=== PATIENT | male | born 1955 | race Caucasian/White ===

== ENCOUNTER 2021-11-20 20:21 | Emergency (ER) | payer MEDICARE, OTHER | END 2021-11-20 22:02 | disposition home or self-care (01) | LOC: CSHERS 20:21 | DX: T83.091A Other mechanical complication of indwelling urethral catheter, initial encounter (principal); I48.91 Unspecified atrial fibrillation; N18.6 End stage renal disease; Z99.2 Dependence on renal dialysis; Z86.718 Personal history of other venous thrombosis and embolism | CPT/HCPCS: 99283 ==

== ENCOUNTER 2021-12-11 08:47 | Outpatient (CLI) | payer MEDICARE | END 2021-12-11 08:48 | disposition home or self-care (01) | LOC: CSHLAB 08:47 | PROVIDERS: ATTEND Surgery | DX: Z01.818 Encounter for other preprocedural examination (principal); Z20.822 Contact with and (suspected) exposure to COVID-19; C65.1 Malignant neoplasm of right renal pelvis | CPT/HCPCS: 93005; 93010; U0003; U0005 ==

== ENCOUNTER 2021-12-14 05:44 | Day surgery (SDC) | payer MEDICARE ==
[2021-12-11 12:31] VITALS: BMI 23.0
[2021-12-14] MEDS ORDERED: EPINEPHrine 1 MG/ML AMP ONE (06:39)
[2021-12-14] MEDS ORDERED: Bupivacaine 0.25% HCL 30 ML VIAL ONE (06:39)
[2021-12-14] MEDS ORDERED: Sodium Chloride 0.9% 100 ML ONE (06:40)
[2021-12-14] MEDS ORDERED: Fentanyl 100 MCG/2 ML VIAL ONE (06:43)
[2021-12-14] MEDS ORDERED: PROPOFOL 20 ML ONE (06:43)
[2021-12-14] MEDS ORDERED: Lidocaine 1% PF 5 ML VIAL ONE (06:48)
[2021-12-14] MEDS ORDERED: Ondansetron PF 4 MG/2 ML Vial ONE (06:48)
[2021-12-14] MEDS ORDERED: ceFAZolin 2 GM/Dextrose 50 ML IVPB ONE (07:04)
[2021-12-14] MEDS ORDERED: Acetaminophen 325 MG TAB PO PRN (08:10)
[2021-12-14] MEDS ORDERED: HYDROcodone/Acetaminophen 5/325 mg Tablet PO PRN (08:10)
== END 2021-12-14 08:30 | disposition home or self-care (01) ==
LOC: CSHSDC 05:44
PROVIDERS: ATTEND Surgery
PROC: 0JH60WZ Insertion of Totally Implantable Vascular Access Device into Chest Subcutaneous Tissue and Fascia, Open Approach (ICD-10-PCS; principal; 2021-12-14)
PROC: 02HV33Z Insertion of Infusion Device into Superior Vena Cava, Percutaneous Approach (ICD-10-PCS; 2021-12-14)
DX: T86.19 Other complication of kidney transplant (principal); C80.2 Malignant neoplasm associated with transplanted organ; C64.1 Malignant neoplasm of right kidney, except renal pelvis; I12.0 Hypertensive chronic kidney disease with stage 5 chronic kidney disease or end stage renal disease; N18.6 End stage renal disease; I48.0 Paroxysmal atrial fibrillation; Z86.718 Personal history of other venous thrombosis and embolism; Z87.891 Personal history of nicotine dependence; Z79.01 Long term (current) use of anticoagulants; Z79.52 Long term (current) use of systemic steroids; Z79.82 Long term (current) use of aspirin; Z79.899 Other long term (current) drug therapy; Z99.2 Dependence on renal dialysis; Z86.73 Personal history of transient ischemic attack (TIA), and cerebral infarction without residual deficits
CPT/HCPCS: 36561; C1788; J0171; J0690; J1642; J2405; J2704; J3010; J3490; S0020

== ENCOUNTER 2021-12-30 11:18 | Emergency (ER) | payer MEDICARE ==
[2021-12-30] MEDS ORDERED: Fentanyl 100 MCG/2 ML VIAL ONE (13:14)
[2021-12-30 13:22] LABS: Hemoglobin 8.1 g/dL (13.5-17.5); Mean Corpuscular HGB CONC 33.6 g/dL (32.0-36.0); Mean Corpuscular Hemoglobin 31.5 pg (27.0-33.0); Mean Corpuscular Volume 93.8 fl (81.2-95.1); Mean Platelet Volume 11.1 fl (7.4-10.4); Platelet Count 18 10x3/uL (150-450); RBC Distribution Width 14.3 % (11.5-14.5); Red Blood Cell (RBC) Count 2.57 10x6/uL (4.32-5.72); White Blood Cell (WBC) Count 0.5 10x3/uL (3.5-10.5)
[2021-12-30 13:30] LABS: MDiff Complete? YES
[2021-12-30 13:38] LABS: ALT (SGPT) 18 U/L (8-55); AST (SGOT) 24 U/L (5-34); Albumin 3.5 g/dL (3.4-4.8); Alkaline Phosphatase 54 U/L (40-110); Anion Gap 18 mmol/L (10-20); BUN (Urea Nitrogen) 62 mg/dL (8.4-25.7); Bilirubin, Total 0.8 mg/dL (0.2-1.2); CRP (Inflammatory) 6.09 mg/dL (= or < 0.5); Calc. Creatinine Clearance 0 mL/min (70-130); Carbon Dioxide 29 mmol/L (23-31); Chloride 94 mmol/L (98-107); Globulin 2.6 g/dL (2.4-3.5); Glucose 95 mg/dL (80-115); Potassium 4.5 mmol/L (3.5-5.1); Protein, Total 6.1 g/dL (5.8-8.1); Sodium 136 mmol/L (136-145)
[2021-12-30 13:50] LABS: Band 2 % (5-11); Lymphocytes 30 % (21-51); Monocytes 12 % (0-10); Neutrophil 48 % (42-75); Reactive Lymphocytes 6 % (0-10)
[2021-12-30 13:53] LABS: Ovalocytes SLIGHT = 2-5 cells (100X) (0-1/hpf); Toxic Granulation SLIGHT
[2021-12-30 13:54] LABS: Platelet Morphology Comment Appears Decreased; Reflex for Review?? YES
== END 2021-12-30 16:53 | disposition home or self-care (01) ==
LOC: CSHERS 11:18
DX: M70.32 Other bursitis of elbow, left elbow (principal); D61.818 Other pancytopenia; N18.6 End stage renal disease
CPT/HCPCS: 80053; 85025; 85060; 85652; 86140; 99282; J3010

== ENCOUNTER 2022-04-01 13:33 | Outpatient (CLI) | payer MEDICARE | END 2022-04-01 13:34 | disposition home or self-care (01) | LOC: CSHCT 13:33 | PROVIDERS: ATTEND Internal Medicine Hematology & Oncology | DX: C65.1 Malignant neoplasm of right renal pelvis (principal); J90 Pleural effusion, not elsewhere classified; N26.1 Atrophy of kidney (terminal); I87.8 Other specified disorders of veins; I77.89 Other specified disorders of arteries and arterioles; M71.9 Bursopathy, unspecified; Z90.49 Acquired absence of other specified parts of digestive tract; R18.8 Other ascites | CPT/HCPCS: 71260; 74177; 82565 ==

== ENCOUNTER 2022-06-24 08:46 | Outpatient (CLI) | payer MEDICARE | END 2022-06-24 08:47 | disposition home or self-care (01) | LOC: CSHCT 08:46 | PROVIDERS: ATTEND Internal Medicine Hematology & Oncology | DX: C65.9 Malignant neoplasm of unspecified renal pelvis (principal); R93.5 Abnormal findings on diagnostic imaging of other abdominal regions, including retroperitoneum | CPT/HCPCS: 71260; 74177 ==

== ENCOUNTER 2023-06-17 07:47 | Outpatient (CLI) | payer MEDICARE ==
[2023-06-17] MEDS ORDERED: Iopamidol 300 61% 100 ML VIAL FS ONE (12:30)
== END 2023-06-17 07:48 | disposition home or self-care (01) ==
LOC: CSHCT 07:47
PROVIDERS: ATTEND Internal Medicine Hematology & Oncology
DX: C65.1 Malignant neoplasm of right renal pelvis (principal)
CPT/HCPCS: 71260; 74177; Q9967

== ENCOUNTER 2023-12-01 09:00 | Outpatient (CLI) | payer MEDICARE | END 2023-12-01 09:01 | disposition home or self-care (01) | LOC: CSHCT 09:00 | PROVIDERS: ATTEND Internal Medicine Hematology & Oncology | DX: C65.1 Malignant neoplasm of right renal pelvis (principal); N32.89 Other specified disorders of bladder; N26.1 Atrophy of kidney (terminal); Z94.0 Kidney transplant status | CPT/HCPCS: 71260; 74177 ==